=== PATIENT | female | born 1960 | race Asian ===

== ENCOUNTER 2017-12-15 12:30 | Emergency (ER) | payer BC ==
[~2017-12-15] VITALS: Ht 165.1 cm; Wt 52.2 kg
[2017-12-15 13:06] VITALS: BP 162/93
[2017-12-15] MEDS ORDERED: IBUPROFEN 600 MG TAB PO ONE (13:45)
== END 2017-12-15 13:49 | disposition home or self-care (01) ==
LOC: ER 12:30
DX: S62.626A Displaced fracture of middle phalanx of right little finger, initial encounter for closed fracture (principal); S60.221A Contusion of right hand, initial encounter; Z88.0 Allergy status to penicillin; W22.8XXA Striking against or struck by other objects, initial encounter; Y93.89 Activity, other specified; Y99.8 Other external cause status; Y92.89 Other specified places as the place of occurrence of the external cause
CPT/HCPCS: 29125; 73130